=== PATIENT | female | born 1985 | race Caucasian/White ===

== ENCOUNTER 2021-08-26 11:00 | Emergency (ER) | payer MEDICAID, SELFPAY ==
[2021-08-26 11:04] VITALS: BP 158/90; PULSE 94; RESP 18; TEMP 36.2; O2SAT 99; BMI 48.4
--- NOTE | 2021-08-26 11:20 | ED_ITS ---
HPI - Ear Problem General Chief complaint: Ear Problems Stated complaint: EAR PAIN Time Seen by Provider: 08/26/21 11:19 Source: patient Mode of arrival: ambulatory Limitations: no limitations History of Present Illness HPI Narrative: 36 y/o female presenting to the ER with 2 weeks of bilateral ear pressure and sinus pressure. Patient was seen at [facility] last week and was prescribed Augmentin for this. She states she was only able to take 4 doses because of upset stomach, nausea, vomiting. She continued to have symptoms and is now worsening bilateral ear pressure and sinus pressure below her eyes. She denies fever or chills. No nasal discharge. She has a throbbing headache and had a hard time sleeping because of the pain and pressure. MD Complaint: ear pain Location: bilateral Duration: constant Severity: severe Relieving factors: nothing Exacerbating factors: position of head and palpation Context: recent illness Discharge from ear: no Associated symptoms ear: headache Treatment prior to arrival: none Related Data Previous Rx's Medication Instructions Recorded cetirizine 10 mg tablet (Zyrtec) 10 mg PO DAILY #30 tab 08/26/21 fluticasone propionate 50 1 spray INTRANASAL BID #16 g 08/26/21 mcg/actuation nasal spray,suspension (Flonase Allergy Relief) ibuprofen 600 mg tablet 600 mg PO Q8H PRN #20 tab 08/26/21 levofloxacin 500 mg tablet 500 mg PO DAILY #10 tab 08/26/21 Allergies Allergy/AdvReac Type Severity Reaction Status Date / Time No Known Allergies Allergy Unverified 03/19/20 18:59 [No Known Allergies*] Review of Systems Review of Systems: Constitutional: No Fever, No Chills ENT/Mouth: No sore throat, No Rhinorrhea, No Swallowing Difficulty, +Sinus pressure, +Otalgia, No ear drainage, No hearing loss Eyes: No Eye Pain, No Swelling, No Redness Cardiovascular: No Chest Pain, No SOB Respiratory: No Cough, No Sputum Gastrointestinal: No Nausea, No Vomiting Musculoskeletal: No joint pain, No Myalgias Skin: No Skin Lesions, No rash Neuro: No Weakness, No Numbness, + Dizziness, + Headache Heme/Lymph: No Lymphadenopathy PMFSH Past Medical History Medical History (Updated 08/26/21 @ 12:19 by MADHAV Pedroza) Diabetes Social History Social History Advance Directives: No Advance Directives Information Provided: No Patient : No Physical Exam Vital Signs: Vital Signs: Last Vital Signs Temp 97.1 F 08/26/21 11:04 Pulse 94 08/26/21 11:04 Resp 18 08/26/21 11:04 BP 158/90 H 08/26/21 11:04 Pulse Ox 99 08/26/21 11:04 BMI result Body Mass Index 48.4 Appearance: Alert. Oriented X3. No acute distress. Eyes: Pupils equal, round and reactive to light. No nystagmus. ENT: Pharynx normal. Bilateral EACs are normal with bilateral TM's with diffuse effusion, no erythema. no perforation Neck: Normal inspection. Neck supple. No LAD CVS: Normal heart rate and rhythm. Pulses normal. Respiratory: No respiratory distress. Breath sounds normal. Skin: Skin warm and dry. Normal skin color. Normal skin turgor. No rashes. Extremities: Normal inspection x4 Neuro: Oriented X 3. No motor deficit. No sensory deficit. Course Course Course Narrative: 36-year-old female presenting to the ER with 2 weeks of bilateral ear and sinus pressure. She was recently diagnosed with a sinus infection at [facility] was prescribed Augmentin but did not take it. She states her symptoms are worsening. Her exam is consistent with acute sinusitis. Given her intolerance to penicillin will give her 10 day course of Levaquin for sinus infection. Will also start her on Zyrtec and Flonase for possible allergic component. She is encourage follow-up with her primary care doctor. Stable for discharge home. Critical Care Time Critical Care Time Critical Care Time: No Discharge Plan Discharge Clinical Impression: Acute sinusitis Patient Disposition: Home, Self-Care Instructions: Sinusitis (ED) Additional Instructions: Take the prescribed antibiotic as directed for full 10 recommend taking with food. Complete the entire course. Use the prescribed nasal spray 2 times a day for the next 2 weeks. Take the prescribed allergy medicine once a day for 1 month. Take the prescribed anti-inflammatory medication as needed for pain. Follow-up with your doctor next week. If you develop new or worsening symptoms call 911 or come back to the ER for further evaluation. Imbler el antibi?clifford recetado seg?n las indicaciones para completar 10 se recomienda tomarlo con alimentos. Completa todo el curso. Use el aerosol nasal recetado 2 veces al d?a yeni las pr?ximas 2 semanas. Imbler el medicamento recetado para la alergia angelo vez al d?a yeni 1 mes. Imbler el medicamento antiinflamatorio recetado seg?n sea necesario para el dolor. Seguimiento con mittal m?dico la pr?xima semana. Si desarrolla s?ntomas nuevos o que empeoran, llame al 911 o regrese a la renetta de emergencias para angelo evaluaci?n adicional. Prescriptions: New levofloxacin 500 mg tablet 500 mg PO DAILY Qty: 10 0RF fluticasone propionate [Flonase Allergy Relief] 50 mcg/actuation spray,suspension 1 spray intranasal BID Qty: 16 0RF Rx Instructions: administer into each nostril ibuprofen 600 mg tablet 600 mg PO Q8H PRN (Reason: pain) Qty: 20 0RF cetirizine [Zyrtec] 10 mg tablet 10 mg PO DAILY Qty: 30 0RF Interventions: ED Discharge Assessment Last Done: 08/26/21 12:26 Discharge Date/Time: 08/26/21 12:26 Print Language: Sammarinese
== END 2021-08-26 12:26 | disposition home or self-care (01) ==
PROVIDERS: Emergency Provider Emergency Medicine; PCP Internal Medicine
DX: J01.90 Acute sinusitis, unspecified (principal); H92.03 Otalgia, bilateral; E11.9 Type 2 diabetes mellitus without complications
CPT/HCPCS: 99283

== ENCOUNTER 2022-04-26 14:25 | Outpatient (REF) | payer MEDICAID, SELFPAY ==
--- NOTE | ~2022-04-26 | US_ITS ---
EXAMINATION: US OBSTETRICAL ULTRASOUND CLINICAL INFORMATION: Unknown LMP. Check size and dates. COMPARISON: None. LMP: Unknown. TECHNIQUE: Transabdominal first trimester OB ultrasound FINDINGS: There is a single intrauterine gestational sac with visible yolk sac, embryo/fetus, and cardiac activity. There is no significant subchorionic hemorrhage or hematoma. HR: 179 beats per minute. CRL (crown rump length): 3.2 cm (10 weeks 1 day +/- 4 days). ALESSANDRA (estimated date of delivery): 11/21/2022 +/- 4 days. MATERNAL ADNEXA: The ovaries are not seen. There is no fluid in the pelvis. US/US OB <= 14 weeks fetus IMPRESSION: 1. Single intrauterine gestation with ultrasound gestational age of 10 weeks 1 day +/- 4 days. 2. Estimated date of delivery is 11/21/2022 +/- 4 days. 3. Ovaries not seen.
== END 2022-04-26 14:26 | disposition home or self-care (01) ==
LOC: HO.US 14:25
PROVIDERS: PCP Internal Medicine; Visit Provider Advanced Practice Midwife
DX: Z34.91 Encounter for supervision of normal pregnancy, unspecified, first trimester (principal); Z3A.10 10 weeks gestation of pregnancy
CPT/HCPCS: 76801

== ENCOUNTER 2023-05-22 08:46 | Outpatient (REF) | payer MEDICAID, SELFPAY ==
[2023-05-22 14:56] LABS: Estimated Average Glucose 120 mg/dL; Hemoglobin A1c % 5.8 % (<6.0)
[2023-05-22 14:57] LABS: Alanine Aminotransferase 18 U/L (0-31); Albumin Level 4.1 g/dL (3.5-5.0); Alkaline Phosphatase 38 U/L (39-117); Anion Gap 8 (12-20); Aspartate Amino Transferase 15 U/L (5-31); Bilirubin Total 0.5 mg/dL (0.0-1.0); Blood Urea Nitrogen 11 mg/dL (9-16); Carbon Dioxide 27 mmol/L (22-29); Chloride 106 mmol/L (96-108); Cholesterol 175 mg/dL (<200); Estimated Glomerular Filt Rate > 60; Glucose Fasting 87 mg/dL (60-99); HDL Cholesterol 61 mg/dL (>40); LDL Cholesterol Calculated 103 mg/dL (<100); Potassium 3.3 mmol/L (3.3-5.1); Sodium 138 mmol/L (135-145); Total Protein 7.4 g/dL (6.5-8.0); Triglycerides 56 mg/dL (<150)
[2023-05-22 15:33] LABS: Creatinine Urine 80.36 mg/dL; Microalbum/Creatinine Ratio Ur 7.4 ug/mg cr (<30)
[2023-05-25 14:33] LABS: HIV RNA PCR Qn Copies Not Detected Copies/mL; HIV RNA PCR Qn Log Copies Not Detected Log cps/mL
== END 2023-05-22 08:47 | disposition home or self-care (01) ==
LOC: HO.CHCLDS 08:46
PROVIDERS: Visit Provider Internal Medicine
DX: E11.9 Type 2 diabetes mellitus without complications (principal)
CPT/HCPCS: 36415; 80053; 80061; 82043; 82570; 83036; 87536; 87900

== ENCOUNTER 2024-02-21 08:29 | Outpatient (REF) | payer MEDICAID, SELFPAY ==
[2024-02-21 14:41] LABS: Alanine Aminotransferase 21 U/L (0-31); Albumin Level 4.2 g/dL (3.5-5.0); Alkaline Phosphatase 35 U/L (39-117); Anion Gap 12 (12-20); Aspartate Amino Transferase 17 U/L (5-31); Bilirubin Total 0.7 mg/dL (0.0-1.0); Blood Urea Nitrogen 9 mg/dL (9-16); Calcium 9.2 mg/dL (8.4-10.2); Carbon Dioxide 26 mmol/L (22-29); Chloride 104 mmol/L (96-108); Cholesterol 153 mg/dL (<200); Estimated Glomerular Filt Rate > 60; Glucose Random 82 mg/dL (60-115); HDL Cholesterol 61 mg/dL (>40); LDL Cholesterol Calculated 83 mg/dL (<100); Potassium 3.2 mmol/L (3.3-5.1); Sodium 139 mmol/L (135-145); Total Protein 7.2 g/dL (6.5-8.0); Triglycerides 46 mg/dL (<150)
== END 2024-02-21 08:30 | disposition home or self-care (01) ==
LOC: HO.CHCLDS 08:29
PROVIDERS: Visit Provider Internal Medicine
DX: E11.9 Type 2 diabetes mellitus without complications (principal)
CPT/HCPCS: 36415; 80053; 80061

== ENCOUNTER 2024-04-16 16:27 | Outpatient (REF) | payer MEDICAID, SELFPAY ==
[2024-04-17 11:24] LABS: Bacterial Vaginosis PCR NEGATIVE (Negative); Candida Group PCR DETECTED (Not Detect); Candida glab krusei PCR NOT DETECTED (Not Detect); Trichomonas vaginalis PCR NOT DETECTED (Not Detect)
[2024-04-17 11:27] LABS: CT PCR NOT DETECTED (Not Detect.); NG PCR NOT DETECTED (Not Detect.)
== END 2024-04-16 16:28 | disposition home or self-care (01) ==
LOC: HO.HHCLNP 16:27
PROVIDERS: Visit Provider Advanced Practice Midwife
DX: Z11.3 Encounter for screening for infections with a predominantly sexual mode of transmission (principal)
CPT/HCPCS: 0352U; 87491; 87591

== ENCOUNTER 2024-05-15 20:57 | Emergency (ER) | payer MEDICAID, SELFPAY ==
--- NOTE | ~2024-05-15 | US_ITS ---
EXAMINATION: US OBSTETRICAL ULTRASOUND CLINICAL INFORMATION: . Abdominal pain. COMPARISON: OB ultrasound 04/26/2022. TECHNIQUE: Transabdominal and endovaginal ray scale, M mode, color ultrasonography of the pelvis. FINDINGS: A single intrauterine gestation is identified. No subchorionic fluid collections visualized. M-mode interrogation demonstrates a heart rate of 155 bpm. The crown-rump length measures 0.73 cm. (6 week 5 day). A gestational sac and yolk sac are identified. A pole is present. No myometrial lesions identified. Uterus is present in an anteverted configuration. The right ovary measures 4.2 cm x 2.5 cm x 2.2 cm. The left ovary measures 2.9 cm x 2.27 x 1.8 cm. The ovaries are normal in appearance and demonstrate normal color Doppler interrogation. No gross free intraperitoneal fluid collections identified. US/US OB <= 14 weeks fetus IMPRESSION: Single live intrauterine gestation, sonographic estimated gestational age 6 weeks 5 days. Normal appearance of the ovaries. Electronically signed by: Mario Cage MD 05/16/2024 01:55 AM IVANIA ZUÑIGA
[2024-05-15 21:00] VITALS: BP 112/80; PULSE 74; RESP 18; TEMP 36.6; O2SAT 98; BMI 34.5
[2024-05-15 21:39] LABS: MANUAL DIFF FLAG NO
[2024-05-15 21:45] LABS: Basophils Absolute Auto 0.1 X10*3/uL (0.0-0.2); Basophils Percent Auto 0.4 % (0-2); Eosinophils Absolute Auto 0.2 X10*3/uL (0.0-0.4); Eosinophils Percent Auto 1.6 % (0-4); Hematocrit 38.1 % (37.0-47.0); Hemoglobin 13.2 g/dl (12.0-16.0); Imm Gran Abs Auto 0.03 X10*3/uL (0.00-0.03); Imm Gran Pct Auto 0.3 % (0.0-0.4); Lymphocytes Absolute Auto 3.4 X10*3/uL (1.2-4.9); Lymphocytes Percent Auto 30.1 % (20-40); Mean Corpuscular HGB Conc 34.6 g/dl (31.0-35.0); Mean Corpuscular Hemoglobin 31.1 pg (27.0-33.0); Mean Corpuscular Volume 89.6 fL (80.0-98.0); Mean Platelet Volume 9.5 fL (9.4-12.3); Monocytes Absolute Auto 0.6 X10*3/uL (0.1-1.2); Monocytes Percent Auto 5.3 % (2-11); Neutrophils Absolute Auto 7.1 x10*3/uL (2.0-8.3); Neutrophils Percent Auto 62.3 % (45-73); Platelet Count 355 X10*3/uL (160-400); Red Blood Count 4.25 X10*6/uL (4.20-5.50); Red Cell Distribution Width 12.7 % (11.0-16.0); White Blood Count 11.4 X10*3/uL (4.8-10.8)
[2024-05-15 22:05] LABS: Alanine Aminotransferase 17 U/L (0-31); Alkaline Phosphatase 51 U/L (39-117); Anion Gap 10 (12-20); Aspartate Amino Transferase 12 U/L (5-31); Bilirubin Total 0.3 mg/dL (0.0-1.0); Blood Urea Nitrogen 8 mg/dL (9-16); Calcium 8.8 mg/dL (8.4-10.2); Carbon Dioxide 26 mmol/L (22-29); Chloride 106 mmol/L (96-108); Creatinine Clr Calc Pharmacy 144.6; Estimated Glomerular Filt Rate > 60; Glucose Random 135 mg/dL (60-115); Potassium 3.3 mmol/L (3.3-5.1); Sodium 139 mmol/L (135-145); Total Protein 7.1 g/dL (6.5-8.0)
[2024-05-15 22:22] LABS: HCG Quantitative 24772 mIU/mL
--- NOTE | 2024-05-15 22:57 | PC.NURSE ---
Pt a&ox3, no signs of distress. Pt reporting pins and needles in lower abd onset yesterday. Pt denies pain. Pt reports being stressed at home Plan of care ongoing.
[2024-05-16 00:17] VITALS: BP 118/57; PULSE 62; RESP 16; TEMP 36.8; O2SAT 99
--- NOTE | 2024-05-16 00:36 | MHC.EDTECH ---
This pct assumed care of Patient at 2315 ,vitals taken ,Patient urine sample collected and sent to lab .no apparent distress noted .Call reid within Pt reach .
[2024-05-16 00:40] LABS: Appearance Urine Clear; Color Urine Yellow; Glucose Urine UA Negative (Negative); Leukocyte Esterase Urine Negative (Negative); Nitrite Urine Negative (Negative); Specific Gravity - Urine 1.025 (1.005-1.025); Urine Blood Negative (Negative); Urine Ketones 15 mg/dL (Negative); Urine Protein Negative (Neg-Trace)
--- NOTE | 2024-05-16 02:15 | ED.GENADULT ---
HPI - General Adult General Chief complaint: Abdominal Pain Stated complaint: 7 weeks pregs, cramps Time Seen by Provider: 05/16/24 00:09 Source: patient Limitations: language barrier (In-person sql server bi developer used) History of Present Illness ED Provider: Jose HPI narrative: 39-year-old female approximately 7 weeks presenting for abdominal cramping. Patient states that she has been experiencing a day of intermittent abdominal cramping. She denies vaginal discharge, vaginal bleeding, nausea, vomiting, diarrhea. She states that she has had an ultrasound already that showed an intrauterine . She is currently not experiencing any abdominal pain. She denies fevers, chills, chest pain, shortness of breath. Related Data Previous Rx's ?Medication ?Instructions ?Recorded cetirizine 10 mg tablet (Zyrtec) 10 mg PO DAILY #30 tabs 08/26/21 fluticasone propionate 50 1 spray intranasal BID #16 grams 08/26/21 mcg/actuation nasal spray,suspension (Flonase Allergy Relief) ibuprofen 600 mg tablet 600 mg PO Q8H PRN pain #20 tabs 08/26/21 levofloxacin 500 mg tablet 500 mg PO DAILY #10 tabs 08/26/21 Allergies Allergy/AdvReac Type Severity Reaction Status Date / Time No Known Allergies Allergy Verified 05/15/24 21:03 [No Known Allergies*] Review of Systems Review of Systems: Patient endorses abdominal cramping Yes all other systems are reviewed and are negative PMFSH Past Medical History Source: old records reviewed Medical History (Updated 05/16/24 @ 01:38 by Juan M Garcia MD) Diabetes Social History Social History Smoked in Last 30 Days: No Use of substances other than those prescribed or required for medical reasons: No Advance Directives: No Advance Directives Information Provided: Yes Do you have a plan to hurt others: No Plan Patient : Yes (Pt reports she is about 7 weeks) Physical Exam ED Vital Signs: Vital Signs - 24 hr 05/15/24 21:00 05/16/24 00:17 Temperature 97.8 F 98.2 F Pulse Rate 74 62 Respiratory Rate 18 16 Blood Pressure 112/80 118/57 L Pulse Oximetry 98 99 Oxygen Delivery Method Room Air Room Air BMI result Body Mass Index 34.5 Well-appearing female in no acute distress. Lungs clear to auscultation bilaterally. Normal S1-S2 regular rate and rhythm. Abdomen is soft, nontender nondistended. No CVA tenderness. No lower extremity edema appreciated Medical Decision Making Medical Decision Making MDM Narrative: This is a 31-year-old female approximately 7 weeks presenting for abdominal cramping. I am concerned for the following; miscarriage, changes, UTI. Labs were ordered and are notable for stable H&H, no white count, electrolytes within normal limits, normal LFTs. UA is clean. I do not appreciate any free free fluid on patient's ultrasound and radiologist's impression read single live intrauterine approximately 6 weeks. I discussed findings with the patient and gave her follow up instructions and return precautions. Patient states that she has an appointment with her computer hardware developer on Monday and that she is currently taking vitamins. She is stable for discharge Lab Data 05/15/24 21:34 05/15/24 21:34 Labs: Lab Results 05/15/24 05/16/24 Range/Units 21:34 00:34 WBC 11.4 H (4.8-10.8) X10*3/uL RBC 4.25 (4.20-5.50) X10*6/uL Hgb 13.2 (12.0-16.0) g/dl Hct 38.1 (37.0-47.0) % MCV 89.6 (80.0-98.0) fL MCH 31.1 (27.0-33.0) pg MCHC 34.6 (31.0-35.0) g/dl RDW 12.7 (11.0-16.0) % Plt Count 355 (160-400) X10*3/uL MPV 9.5 (9.4-12.3) fL Immature Gran % (Auto) 0.3 (0.0-0.4) % Neut % (Auto) 62.3 (45-73) % Lymph % (Auto) 30.1 (20-40) % [place] % (Auto) 5.3 (2-11) % Eos % (Auto) 1.6 (0-4) % Baso % (Auto) 0.4 (0-2) % Lymph # (Auto) 3.4 (1.2-4.9) X10*3/uL [place] # (Auto) 0.6 (0.1-1.2) X10*3/uL Eos # (Auto) 0.2 (0.0-0.4) X10*3/uL Baso # (Auto) 0.1 (0.0-0.2) X10*3/uL Abs Immat Gran (auto) 0.03 (0.00-0.03) X10*3/uL Absolute Neuts (auto) 7.1 (2.0-8.3) x10*3/uL Absolute Nucleated RBC 0.000 (0.0-0.012) X10*3/uL Nucleated RBC % (auto) 0.0 (0.0-0.2) /100WBC Sodium 139 (135-145) mmol/L Potassium 3.3 (3.3-5.1) mmol/L Chloride 106 (96-108) mmol/L Carbon Dioxide 26 (22-29) mmol/L Anion Gap 10 L (12-20) BUN 8 L (9-16) mg/dL Creatinine 0.64 (0.5-1.4) mg/dL Estim Creat Clear Calc 144.6 Estimated GFR > 60 Random Glucose 135 H (60-115) mg/dL Calcium 8.8 (8.4-10.2) mg/dL Total Bilirubin 0.3 (0.0-1.0) mg/dL AST 12 (5-31) U/L ALT 17 (0-31) U/L Alkaline Phosphatase 51 (39-117) U/L Total Protein 7.1 (6.5-8.0) g/dL Albumin 4.0 (3.5-5.0) g/dL Beta HCG, Quant 01832 mIU/mL Urine Color Yellow Urine Appearance Clear Urine pH 6.0 (5.0-9.0) Ur Specific [place] 1.025 (1.005-1.025) Urine Protein Negative (Neg-Trace) mg/dL Urine Glucose (UA) Negative (Negative) mg/dL Urine Ketones 15 (Negative) mg/dL Urine Blood Negative (Negative) Urine Nitrite Negative (Negative) Ur Leukocyte Esterase Negative (Negative) Discharge Plan Discharge Clinical Impression: Abdominal cramping Patient Disposition: Home, Self-Care Additional Instructions: Los resultados de mittal ultrasonido fueron normales. Por favor livier un seguimiento con el ginec?logo en las pr?ximas 24-48 horas. Si desarrolla alg?n s?ntoma nuevo o que empeora, regrese al departamento de emergencias. Prescriptions: No Action levofloxacin 500 mg tablet 500 mg PO DAILY Qty: 10 0RF fluticasone propionate [Flonase Allergy Relief] 50 mcg/actuation spray,suspension 1 spray intranasal BID Qty: 16 0RF Rx Instructions: administer into each nostril ibuprofen 600 mg tablet 600 mg PO Q8H PRN (Reason: pain) Qty: 20 0RF cetirizine [Zyrtec] 10 mg tablet 10 mg PO DAILY Qty: 30 0RF Print Language: Marshallese
[2024-05-16 02:17] VITALS: BP 115/69; PULSE 58; RESP 16; TEMP 36.5; O2SAT 97
--- NOTE | 2024-05-16 02:19 | MHC.EDTECH ---
0200 rounding done ,vitals taken ,Patient resting with her eyes closed ,Family member at bedside .
[2024-05-16 02:51] VITALS: BP 115/69; PULSE 58; RESP 16; TEMP 36.5; O2SAT 97
== END 2024-05-16 02:56 | disposition home or self-care (01) ==
PROVIDERS: Emergency Provider Student in an Organized Health Care Education/Training Program; PCP Internal Medicine
DX: O26.91 Pregnancy related conditions, unspecified, first trimester (principal); Z3A.01 Less than 8 weeks gestation of pregnancy; Z79.899 Other long term (current) drug therapy
CPT/HCPCS: 36415; 76801; 80053; 81003; 84702; 85025; 99284